=== PATIENT | female | born 1990 | race Caucasian/White ===

== ENCOUNTER 2022-06-19 14:12 | Emergency (ER) | payer BC ==
--- OUTSIDE RECORDS SUMMARY | 2022-06-19 14:15 | XMS REPORT | Continuity of Care Document ---
:1990 Author Organization [facility] t Address [address] [place] [address] Care Team Providers Name Role Phone [email or web address]_D Attending Clinician Unavailable Ju Love Attending Clinician [phone] GC_LAVERNEC_Black_D Admitting Clinician Unavailable Payers Payer Name Policy Type Policy Number Effective Date Expiration Date S our[place] [id number] 2021 00:00:00 [place] Problems This patient has no known problems. Allergies, Adverse Reactions, Alerts This patient has no known allergies or adverse reactions. Medications This patient has no known medications. Procedures This patient has no known procedures. Encounters Start End Encounter Admission Attending Care Care Encounter Source Date/Time Date/Time Type Type Clinicians Facility Department ID 2021-10-19 2021-10-19 Outpatient [facility] PRIV PRIV [id number] [facility] 10:15:00 10:15:00 Black_D [id number] Medica l 2021-10-18 2021-10-18 Outpatient [facility] PRIV PRIV [id number] [facility] 09:47:00 09:47:00 Black_D [id number] Medica l 2021-10-18 2021-10-18 Outpatient Ju Love PRIV PRIV [id number] 00:00:00 00:00:00 Luan [id number] 2021-10-17 Outpatient [facility] PRIV PRIV [id number] [facility] 09:24:00 09:24:00 Black_Dena [id number] Medica l 2021-10-15 2021-10-15 Outpatient [facility] [id number] [facility] 03:40:00 03:40:00 [id number] Medica l Results This patient has no known results.
[2022-06-19 17:23] LABS: Urine Blood 2+ (Negative); Urine Glucose Negative (Negative); Urine Protein Negative (Negative); Urine Specific Gravity 1.025 (1.005-1.030)
[2022-06-19 18:14] LABS: Urine Specific Gravity/Preg 1.025 (1.005-1.030)
--- NOTE | 2022-06-19 18:20 | RAD REPORT ---
EXAM DESCRIPTION: CTChest Abdomen Pelvis W Cont - 06/19/2022 6:10 pm CLINICAL HISTORY: fall, contusion, pain COMPARISON: None TECHNIQUE: CT of the chest, abdomen, and pelvis was performed with IV contrast. All CT scans are performed using dose optimization technique as appropriate and may include automated exposure control or mA/KV adjustment according to patient size. FINDINGS: Thorax: Chest Wall: No abnormal mass Lungs: No acute abnormality. Pleura: No effusions or pneumothorax. Criselda/Mediastinum: No lymphadenopathy. Aorta/Pulmonary Arteries: Unremarkable Heart: Normal size. Abdomen/Pelvis: Liver: No acute abnormality or suspicious lesions. Hepatic steatosis. Biliary: No biliary ductal dilatation. Stomach: No significant focal abnormality. Duodenum: No significant focal abnormality. Pancreas: No significant abnormality. Spleen: No significant abnormality. Adrenal: No suspicious lesions. Kidney/ureter: No hydronephrosis. No renal calculi. Retroperitoneum: No retroperitoneal adenopathy. Vascular: No aneurysm. Bowel: No significant focal abnormality. Diverticulosis without diverticulitis. Normal appendix. Peritoneum: No ascites or free air. Bladder: Nonspecific mild circumferential thickening of the bladder. Reproductive: No adnexal masses. IUD. Bones: No acute fracture. Other: n/a IMPRESSION: No acute findings within the chest, abdomen, or pelvis.
--- NOTE | 2022-06-19 18:35 | ER ---
Nurse's Notes [facility] Name: Kenna Camacho Age: 31 yrs Sex: Female : 1990 Arrival Date: 06/19/2022 Time: 14:28 Bed DIS4 Private MD: Shar Benjamin E Diagnosis: Contusion of lower back and pelvis;Fall (on) (from) other stairs and steps Presentation: 06/19 16:27 Chief complaint: Patient states: Fell on buttocks onto a stair on 06-16-22; states vg1 numbness and tingling to Right leg. Coronavirus screen: Vaccine status: Patient reports being unvaccinated. Client denies travel out of the [place] in the last 14 days. Ebola Screen: Patient denies exposure to infectious person. Patient denies travel to an Ebola-affected area in the 21 days before illness onset. Initial Sepsis Screen: Does the patient meet any 2 criteria? No. Patient's initial sepsis screen is negative. Does the patient have a suspected source of infection? No. Patient's initial sepsis screen is negative. Risk Assessment: Do you want to hurt yourself or someone else? Patient reports no desire to harm self or others. Onset of symptoms was June 16, 2022. 16:27 Method Of Arrival: Wheelchair vg1 16:27 Acuity: MINNA 3 vg1 Triage Assessment: 16:30 General: Appears uncomfortable, Behavior is calm, cooperative. Pain: Complains of pain vg1 in back Pain currently is 8 out of 10 on a pain scale. Neuro: Level of Consciousness is awake, alert, obeys commands, Oriented to person, place, time, situation. Musculoskeletal: Circulation, motion, and sensation intact. 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 - Social history:: Smoking status: Reported history of juuling and/or vaping. Screenin:51 Abuse screen: Denies threats or abuse. Nutritional screening: No deficits noted. bm7 Tuberculosis screening: No symptoms or risk factors identified. Fall Risk None identified. Assessment: 18:51 Reassessment: No changes from previously documented assessment. Patient and/or family bm7 updated on plan of care and expected duration. Pain level reassessed. Patient is alert, oriented x 3, equal unlabored respirations, skin warm/dry/pink. Vital Signs: 16:27 BP 135 / 90; Pulse 69; Resp 18; Temp 98.1(TE); Pulse Ox 100% ; Weight 79.38 kg; Height vg1 5 ft. 7 in. (170.18 cm); Pain 8/10; 18:51 BP 128 / 76; Pulse 78; Resp 16; Pulse Ox 100% on R/A; Pain 5/10; bm7 16:27 Body Mass Index 27.41 (79.38 kg, 170.18 cm) vg1 ED Course: 14:28 Patient arrived in ED. mr 14:28 Shar Benjamin MD is Private Physician. mr 16:30 Triage completed. vg1 16:30 Arm band placed on. vg1 16:31 Lucila Harris FNP-C is PHCP. kb 16:31 Jose Delgado MD is Attending Physician. kb 17:36 Urine --Ancillary (enter results) Sent. kc6 18:11 CT Chest, Abdomen, Pelvis - W/Contrast In Process Unspecified. EDMS 18:51 Patient has correct armband on for positive identification. Client placed on continuous bm7 cardiac and pulse oximetry monitoring. NIBP monitoring applied. 18:51 No provider procedures requiring assistance completed. IV discontinued, intact, bm7 bleeding controlled, No redness/swelling at site. Pressure dressing applied. Administered Medications: 18:50 Drug: [place] (HYDROcodone-acetaminophen) 10 mg-325 mg 1 tabs Route: PO; bm7 18:56 Follow up: Response: No adverse reaction bm7 18:53 CANCELLED (Duplicate Order): Ketorolac 15 mg IVP once kb 18:56 Drug: Ketorolac 15 mg Route: IM; Site: right gluteus; bm7 18:56 Follow up: Response: No adverse reaction bm7 Medication: 18:51 VIS not applicable for this client. bm7 Outcome: 18:34 Discharge ordered by . kb 18:51 Discharged to home ambulatory, with family. bm7 18:51 Condition: good 18:51 Discharge instructions given to patient, family, Instructed on discharge instructions, follow up and referral plans. medication usage, Demonstrated understanding of instructions, follow-up care, medications, Prescriptions given X 2. 18:56 Patient left the ED. bm7 Signatures: Dispatcher [employer] EDKY Lucila Harris, OSVADLO WEBERP-Eligio Manuel Katy ribeiro Dora Lim, RN RN vg1 Estrellita Carolina, RN RN bm7 Bing De Los Santos kc6 Corrections: (The following items were deleted from the chart) 16:32 16:30 Allergies: No Known Allergies; vg1 vg1
--- NOTE | 2022-06-19 18:35 | EDPHYS ---
Physician Documentation [facility] Name: Kenna Camacho Age: 31 yrs Sex: Female : 1990 Arrival Date: 06/19/2022 Time: 14:28 Bed DIS4 Private MD: Shar Benjamin E ED Physician Jose Delgado HPI: 06/20 00:22 This 31 yrs old Female presents to ER via Wheelchair with complaints of Fall Injury, kb Pain All Over. 00:22 Details of fall: The patient fell from an upright position, while walking. Onset: The kb symptoms/episode began/occurred 4 day(s) ago. Associated injuries: The patient sustained left low back, contusion, ecchymosis, swelling. Severity of symptoms: At their worst the symptoms were moderate, in the emergency department the symptoms are unchanged. The patient has not experienced similar symptoms in the past. The patient has not recently seen a physician. Patient reports she fell backwards on the stairs on June 16 hitting left low back on the stair above her. States she has been having a lot of pain with tingling down right leg. Went to PCP and was told to come to the ER for CAT scan to rule out kidney laceration.. 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 - Social history:: Smoking status: Reported history of juuling and/or vaping. ROS: 06/20 00:23 Constitutional: Negative for fever, chills, and weight loss. kb Back: Positive for pain at rest, pain with movement, of the left low back. Skin: Positive for ecchymosis, of the left low back. Neuro: Positive for tingling, of the right leg. All other systems are negative. Exam: 00:23 Constitutional: This is a well developed, well nourished patient who is awake, alert, kb and in no acute distress. Head/Face: Normocephalic, atraumatic. ENT: Moist Mucous membranes Cardiovascular: Regular rate and rhythm with a normal S1 and S2. No gallops, murmurs, or rubs. No pulse deficits. Respiratory: Respirations even and unlabored. No increased work of breathing. Talking in full sentences Abdomen/GI: Soft, non-tender. No distention MS/ Extremity: Pulses equal, no cyanosis. Neurovascular intact. Full, normal range of motion. Neuro: Awake and alert, GCS 15, oriented to person, place, time, and situation. Moves all extremities. Normal gait. Psych: Awake, alert, with orientation to person, place and time. Behavior, mood, and affect are within normal limits. 00:23 Back: pain, that is moderate, ROM is painful. 00:23 Skin: injury, contusion(s), of the left low back. Vital Signs: 06/19 16:27 BP 135 / 90; Pulse 69; Resp 18; Temp 98.1(TE); Pulse Ox 100% ; Weight 79.38 kg; Height vg1 5 ft. 7 in. (170.18 cm); Pain 8/10; 18:51 BP 128 / 76; Pulse 78; Resp 16; Pulse Ox 100% on R/A; Pain 5/10; bm7 16:27 Body Mass Index 27.41 (79.38 kg, 170.18 cm) vg1 MDM: 16:31 Patient medically screened. kb 06/20 00:24 Data reviewed: vital signs, nurses notes. Data interpreted: Pulse oximetry: on room air kb is 100 %. Interpretation: normal. Counseling: I had a detailed discussion with the patient and/or guardian regarding: the historical points, exam findings, and any diagnostic results supporting the discharge/admit diagnosis, radiology results, the need for outpatient follow up, a family practitioner, to return to the emergency department if symptoms worsen or persist or if there are any questions or concerns that arise at home. 06/19 17:23 Order name: Urine --Ancillary (enter results); Complete Time: 18:17 kb 06/19 17:23 Order name: Urine Dipstick-Ancillary; Complete Time: 17:24 EDMS 06/19 16:32 Order name: CT Chest, Abdomen, Pelvis - W/Contrast; Complete Time: 18:29 kb 06/19 18:53 Order name: CREATININE WHOLE BLOOD; Complete Time: 18:53 EDMS 06/19 16:34 Order name: IV Start; Complete Time: 17:36 kb 06/19 16:35 Order name: Urine Dipstick-Ancillary (obtain specimen); Complete Time: 17:36 kb 06/19 16:35 Order name: Urine Test (obtain specimen); Complete Time: 17:36 kb Administered Medications: 06/19 18:50 Drug: [place] (HYDROcodone-acetaminophen) 10 mg-325 mg 1 tabs Route: PO; bm7 18:56 Follow up: Response: No adverse reaction bm7 18:53 CANCELLED (Duplicate Order): Ketorolac 15 mg IVP once kb 18:56 Drug: Ketorolac 15 mg Route: IM; Site: right gluteus; bm7 18:56 Follow up: Response: No adverse reaction bm7 Disposition Summary: 06/19/22 18:34 Discharge Ordered Location: Home kb Condition: Stable kb Diagnosis - Contusion of lower back and pelvis kb - Fall (on) (from) other stairs and steps kb Followup: kb - With: Emergency Department - When: As needed - Reason: Worsening of condition Followup: kb - With: Private Physician - When: 2 - 3 days - Reason: Recheck today's complaints, Continuance of care, Re-evaluation by your physician Discharge Instructions: - Discharge Summary Sheet kb - Musculoskeletal Pain kb - Contusion, [id number] kb Forms: - Medication Reconciliation Form kb - Thank You Letter kb - Antibiotic Education kb - Prescription Opioid Use kb Prescriptions: - Diclofenac Sodium 75 mg Oral tablet,delayed release (DR/EC) - take 1 tablet by ORAL route 2 times per day As needed; 30 tablet; Refills: 0, kb Product Selection Permitted Addendum: 06/20/2022 20:32 Co-signature as Attending Physician, Jose Delgado MD. r n Signatures: Dispatcher [employer] [facility] Lucila Harris, KAROLNIA-C B2B SALES EXECUTIVE-Jose Anderson MD MD rn Garcia, Victoria, RN RN vg1 Estrellita Carolina, WENDI RN bm7 Corrections: (The following items were deleted from the chart) 06/19 16:32 16:30 Allergies: No Known Allergies; vg1 vg1 18:53 18:33 Ketorolac 15 mg IVP once ordered. kb kb 18:53 18:53 Ketorolac 15 mg IVP once ordered. kb kb
[2022-06-19] MEDS ORDERED: HYDROCODONE/APAP 10/325 TAB ONE (18:46)
[2022-06-19] MEDS ORDERED: KETOROLAC 30 MG/ML INJ ONE (18:46)
[2022-06-20 13:19] VITALS: TEMP 98.1; O2SAT 100
[2022-06-20 13:32] VITALS: BP 128/76
== END 2022-06-19 18:56 | disposition home or self-care (01) ==
LOC: ER 14:12
DX: S30.0XXA Contusion of lower back and pelvis, initial encounter (principal); W10.9XXA Fall (on) (from) unspecified stairs and steps, initial encounter
CPT/HCPCS: 81025; 82565; 81003; 71260; 74177; 96372; 99284; Q9967